=== PATIENT | male | born 1960 | race Caucasian/White ===

== ENCOUNTER 2016-10-08 17:42 | Emergency (ER) | payer BC ==
[~2016-10-08] VITALS: Ht 177.8 cm; Wt 106.0 kg
[2016-10-08 20:03] VITALS: BP 124/77
== END 2016-10-08 20:04 | disposition home or self-care (01) ==
LOC: EME 17:42
PROC: 3E0234Z Introduction of Serum, Toxoid and Vaccine into Muscle, Percutaneous Approach (ICD-10-PCS; principal; 2016-10-08)
DX: S61.245A Puncture wound with foreign body of left ring finger without damage to nail, initial encounter (principal); W45.8XXA Other foreign body or object entering through skin, initial encounter; W22.8XXA Striking against or struck by other objects, initial encounter; Y93.79 Activity, other specified sports and athletics
CPT/HCPCS: 99281; 99284; S0020